=== PATIENT | male | born 1980 | race Hispanic/Latino ===

== ENCOUNTER 2021-08-07 20:31 | Emergency (ER) | payer BC ==
[~2021-08-07] VITALS: Ht 180.3 cm; Wt 156.6 kg
[2021-08-07] MEDS ORDERED: KETOROLAC 60 MG VIAL (30MG/ML) IM ONE (23:00)
[2021-08-08] MEDS ORDERED: IBUP-2070 PO (00:38)
[2021-08-08 02:08] VITALS: BP 135/87
== END 2021-08-08 02:10 | disposition home or self-care (01) ==
LOC: EDH 20:31
DX: S81.812A Laceration without foreign body, left lower leg, initial encounter (principal); E11.9 Type 2 diabetes mellitus without complications; I10 Essential (primary) hypertension; X50.1XXA Overexertion from prolonged static or awkward postures, initial encounter; Y93.89 Activity, other specified; Y92.89 Other specified places as the place of occurrence of the external cause; Y99.8 Other external cause status
CPT/HCPCS: 29515; 76882; 96372; 99284; J1885

== ENCOUNTER 2024-05-06 15:55 | Emergency (ER) | payer BC ==
[~2024-05-06] VITALS: Ht 180.3 cm; Wt 145.1 kg
[~2024-05-06 15:55] MED LIST: IBUP-2070 PO
[2024-05-06 17:02] LABS: BASOPHILS # (AUTO) 0.05 K/uL (0.00-0.20); BASOPHILS % (AUTO) 0.6 % (0.0-5.0); EOSINOPHILS # (AUTO) 0.18 K/uL (0.00-0.70); EOSINOPHILS % (AUTO) 2.3 % (0.0-8.0); HEMATOCRIT 46.8 % (42-54); IMMATURE GRANULOCYTE ABSOLUTE 0.02 K/uL (0-1); LYMPHOCYTES # (AUTO) 1.8 K/uL (1.0-4.8); LYMPHOCYTES % (AUTO) 22.8 % (21.0-51.0); MEAN CORPUSCULAR HEMOGLOBIN 32.4 pg (27.0-33.0); MEAN CORPUSCULAR HGB CONC 36.3 g/dL (32.0-36.0); MEAN CORPUSCULAR VOLUME 89.1 fL (79-99); MONOCYTES # (AUTO) 0.6 K/uL (0.1-1.0); NEUTROPHILS # (AUTO) 5.4 K/uL (1.8-7.7); PLATELET COUNT (AUTO) 248 K/uL (130-400); RED BLOOD CELL COUNT(AUTO) 5.25 MIL/uL (4.50-6.20); RED CELL DISTRIBUTION WIDTH 11.4 % (11.0-15.5)
[2024-05-06 17:29] LABS: CREATININE 1.1 mg/dL (0.5-1.3); POTASSIUM 4.7 mmol/L (3.5-5.1)
--- NOTE | 2024-05-06 18:00 | EKG ---
[facility] Test Date: 2024-05-06 Test Time: 15:26:08 Pat Name: CHRIS LOPEZ Department: ED Room: Gender: M [employer]: [facility] : 1980 Requested By: MIRANDA CANALES Order Number: [id number] Reading MD: Alireza Muse Measurements Intervals [place] Rate: 114 P: 52 UT: 171 QRS: 39 QRSD: 82 T: -17 QT: 319 QTc: 439 Interpretive Statements Sinus tachycardia Low voltage, precordial leads Borderline T abnormalities, diffuse leads No previous ECG available for comparison Electronically Signed On 05-06-2024 18:31:09 [employer]END[employer] FOUR[employer]IN[employer] by Ailreza Muse Please click the below link to view image of tracing.
--- NOTE | 2024-05-06 18:14 | HMCIMG ---
PORTABLE CHEST RADIOGRAPH INDICATION: CHEST PAIN COMPARISON: None FINDINGS: Heart size is normal. The pulmonary vascularity and phillip appear normal. No abnormal pulmonary parenchymal opacity or consolidation identified. No significant pleural effusion noted. No pneumothorax detected. IMPRESSION: No radiographic evidence for any acute cardiopulmonary process.
--- NOTE | 2024-05-06 19:35 | ERN ---
General Chief Complaint: Chest Pain Stated Complaint: CHEST PAIN & SHORTNESS OF BREATH Time Seen by MD: 16:54 Time Seen by Midlevel: 16:54 Source: patient History of Present Illness Initial Comments 43-year-old male who presents to the emergency department due to chest pain onset proximally 1:30 p.m.. Patient reports shortness of breath, and elevated blood pressure at work but denies any vomiting, radiating pain or further associated symptoms. Patient denies any significant past medical history, states he has not been seen by a doctor and multiple years. Allergies: Coded Allergies: No Known Allergies (Unverified Allergy, Unknown, 05/06/24) Home Meds Active Scripts Ibuprofen (Ibuprofen) 600 Mg Tablet, 600 MG PO Q6H PRN for PAIN, #30 TAB 0 Refills Prov:RHIANNNO CHAVEZ MD 08/08/21 Past Medical History Past Medical History: Diabetes-Type II, Hypertension Past Surgical History: None ROS Dictation Constitutional: Negative for fever,chills, and weight loss Eyes: Negative for injury, pain,redness, and discharge ENT: Negative for injury,pain or swelling Cardiovascular: Positive for chest pain Negative for palpitations, and edema Respiratory: Positive for shortness of breath Negative for cough, and wheezing, Abdomen/GI: Negative for abdominal pain, nausea, vomiting, diarrhea, and constipation Back: Negative for injury and pain : Negative for painful urination, bleeding or discharge MS/Extremity: Negative for injury and deformity Skin: Negative for rash, and discoloration Neuro: Negative for headache, weakness, numbness, tingling, and seizure Psych: Negative for suicide ideation, homicidal ideation, and hallucinations Physical Exam Physical Exam Dictation General: awake, alert, no acute distress Head/Face: Normocephalic, atraumatic Eyes: PERRL, EOMI, normal conjunctiva ENT: oral cavity clear, oral mucosa moist Neck: Supple, normal range of motion Cardiovascular: Tachycardia Respiratory: CTAB, no respiratory distress, no rales or wheezes Abdomen: Soft, non-tender, non-distended, no guarding or rebound. Skin: Warm, dry, normal turgor, no rash MS/Extremity: Pulses equal, no cyanosis, neurovascular intact, FROM Neuro: COAx4, GCS 15, strength 5/5, CN 2-12 intact, normal cerebellar exam, normal gait Psych: Normal behavior, mood, and affect normal Results Laboratory and Microbiology Lab and Micro Result Laboratory Tests Test 05/06/24 16:48 05/06/24 18:34 05/06/24 19:51 White Blood Count 8.0 K/uL (4.8-10.8) Red Blood Count 5.25 MIL/uL (4.50-6.20) Hemoglobin 17.0 g/dL (14.0-18.0) Hematocrit 46.8 % (42-54) Mean Corpuscular Volume 89.1 fL (79-99) Mean Corpuscular Hemoglobin 32.4 pg (27.0-33.0) Mean Corpuscular Hemoglobin Concent 36.3 g/dL (32.0-36.0) H Red Cell Distribution Width 11.4 % (11.0-15.5) Platelet Count 248 K/uL (130-400) Mean Platelet Volume 9.5 fL (7.5-10.5) Immature Granulocyte % (Auto) 0.3 % (0-1) Neutrophils (%) (Auto) 67.0 % (40.0-77.0) Lymphocytes (%) (Auto) 22.8 % (21.0-51.0) Monocytes (%) (Auto) 7.0 % (3.0-13.0) Eosinophils (%) (Auto) 2.3 % (0.0-8.0) Basophils (%) (Auto) 0.6 % (0.0-5.0) Neutrophils # (Auto) 5.4 K/uL (1.8-7.7) Lymphocytes # (Auto) 1.8 K/uL (1.0-4.8) Monocytes # (Auto) 0.6 K/uL (0.1-1.0) Eosinophils # (Auto) 0.18 K/uL (0.00-0.70) Basophils # (Auto) 0.05 K/uL (0.00-0.20) Absolute Immature Granulocyte (auto 0.02 K/uL (0-1) Nucleated Red Blood Cells 0.0 % (0.0-0.19) Red Blood Cell Morphology See comments D-Dimer Quantitative (PE/DVT) 343 ng/mL (0-500) Sodium Level 135 mmol/L (136-145) L Potassium Level 4.7 mmol/L (3.5-5.1) Chloride Level 99 mmol/L (101-111) L Carbon Dioxide Level 34 mmol/L (21-32) H Blood Urea Nitrogen 8 mg/dL (7-18) Creatinine 1.1 mg/dL (0.5-1.3) Glomerular Filtration Rate Calc 86 mL/min (>90) Random Glucose 413 mg/dL (70-105) *H Total Calcium 9.5 mg/dL (8.5-10.1) Troponin I High Sensitivity 31 ng/L (4-75) 29 ng/L (4-75) Whole Blood Glucose 304 MG/DL (70-110) H Labs Reviewed?: Yes EKG/XRAY/US/CT/MRI EKG Comment Date: 05/06/2024 Time: 1526 Rate: 114 EKG interpretation: Sinus tachycardia, no STEMI Reviewed by ED Attending X-RAY Comment REASON: CHEST PAIN ORDERING PHYSICIAN: MIRANDA CANALES MD PROCEDURE: CXR1VW - CHEST 1VW PORTABLE CHEST RADIOGRAPH INDICATION: CHEST PAIN COMPARISON: None FINDINGS: Heart size is normal. The pulmonary vascularity and phillip appear normal. No abnormal pulmonary parenchymal opacity or consolidation identified. No significant pleural effusion noted. No pneumothorax detected. IMPRESSION: No radiographic evidence for any acute cardiopulmonary process. DICTATED BY: JENELLE JUAN MD DATE: 05/06/241811 [facility] MDM: Differential diagnosis: Atypical chest pain, arrhythmia, PA, hypertension Rationale: 43-year-old male who presents to the emergency department due to chest pain onset proximally 1:30 p.m.. Patient reports shortness of breath, and elevated blood pressure at work but denies any vomiting, radiating pain or further associated symptoms. Patient denies any significant past medical history, states he has not been seen by a doctor and multiple years. Per physical examination patient is in no acute distress, nonlabored breathing. Labs obtained initial troponin 31, 2nd troponin 29, initial glucose 413, mild decrease of sodium and chloride, D-dimer 343. Patient was administered IV fluids, and insulin in the ED. hydralazine ordered however when connected to the monitor patient's blood pressure had improved. Patient was educated on findings, diagnosis and was offered admission for further evaluation. Patient verbalized he did not want to stay and would follow up outpatient with PCP. On re-examination patient verbalized chest pain and shortness of breath had resolved. Advised to follow up with PCP. Return to the emergency department if any worsening symptoms. Patient verbalized understanding. Patient is stable for discharge. ED course delayed due to holding and no room availability for patient to initiate and receive medications. There are no social concerns with this patient. I independently interpreted the test that were performed, results were reviewed by me and considered findings on radiology if ordered. Medical management and examination interpretation discussions were had by me with other qualified healthcare professionals as indicated for the patient's care. ED Course Orders Procedure Category Date Status Time 12 Lead Ekg Tracing- EKG 05/06/24 Resulted Technical 15:56 Chest 1vw RAD 05/06/24 Resulted 16:21 Cbc With Differential LAB 05/06/24 Complete 16:21 Troponin I High LAB 05/06/24 Complete Sensitivity 16:21 Basic Metabolic Panel LAB 05/06/24 Complete 16:21 Troponin I High LAB 05/06/24 Complete Sensitivity 18:17 0.9%Nacl 1000ml (Ns PHA 05/06/24 Complete 1000ml) 18:30 Insulin Regular, PHA 05/06/24 Complete Human 3ml (Humulin R 18:30 Hydralazine 20mg Inj PHA 05/06/24 Complete (Apresoline 20mg In 19:30 D-Dimer LAB 05/06/24 Complete 19:32 Current Medications Medications (Trade) Dose Ordered Sig/Yessi Route PRN Reason Start Time Stop Time Status Last Admin Dose Admin Hydralazine HCl (APRESOLine 20MG INJ) 10 mg ONCE ONCE IM 05/06/24 19:30 05/06/24 19:32 DC 05/06/24 21:01 Insulin Human Regular (humuLIN R 100 UNIT/ML 3ML) 10 unit ONCE ONCE IV 05/06/24 18:30 05/06/24 18:31 DC 05/06/24 19:55 Sodium Chloride 1,000 ml @ 0 mls/hr ONCE ONCE IV 05/06/24 18:30 05/06/24 18:31 DC 05/06/24 19:53 Vital Signs Date Time Temp Pulse Resp B/P (MAP) Pulse Ox O2 Delivery O2 Flow Rate FiO2 05/06/24 21:02 98.8 91 18 182/112 99 Room Air* 0 21 05/06/24 20:05 91 18 142/65 97 Room Air* 0 21 05/06/24 16:12 99.1 110 20 178/105 99 Room Air DX & DISP Disposition: Discharge Departure Impression: Primary Impression: Elevated blood pressure reading Additional Impressions: High glucose level, Chest pain Condition: Stable Additional Instructions: Discharge home. Rest. Follow up with primary care in 24 hours. Return to the ER for any acute changes or worsening symptoms. If any medications were prescribed take as directed. Okay to continue home medications unless otherwise discussed during your visit in the emergency room today. Patient was also advised to follow-up with primary care physician in 1 to 2 days for continued monitoring. Referrals: SELF,REFERRAL (PCP) I performed the substantive portion of the visit. I have reviewed and personally made and approve the management plan that is documented in the notes by myself or the [facility]. I acknowledge full responsibility for the patient's management plan. FUAD JEWELL May 06, 2024 19:35
[2024-05-06] MEDS: 0.9%NACL 1000ML 1,000 ML IV ONE (19:53)
[2024-05-06] MEDS: INSULIN humuLIN R 100 UNIT/ML 3ML IV ONE (19:55)
[2024-05-06] MEDS: hydrALAZine 20MG/ML VIAL IM ONE (21:01)
[2024-05-06 21:49] VITALS: BP 158/90; PULSE 94; RESP 18; TEMP 98.8; O2SAT 99
== END 2024-05-06 21:49 | disposition home or self-care (01) ==
LOC: EDH 15:55
DX: I10 Essential (primary) hypertension (principal); E11.65 Type 2 diabetes mellitus with hyperglycemia; R07.89 Other chest pain
CPT/HCPCS: 99284; 96374; 71045; 96361; 84484 ×2; 80048; 85025; 85378; 82948; 36415; 93005; 96372; J1815; J7030; J0360